=== PATIENT | female | born 1995 | race Caucasian/White ===

== ENCOUNTER 2020-02-17 20:39 | Outpatient (REF) | payer MEDICAID, SELFPAY ==
[2020-02-19 14:52] LABS: Chlamydia Result Negative (Negative); GC Result Negative (Negative)
== END 2020-02-17 20:59 ==
LOC: LBN 20:39
DX: R30.0 Dysuria (principal)
CPT/HCPCS: 87491; 87591

== ENCOUNTER 2020-02-24 02:45 | Outpatient (CLI) | payer MEDICAID, SELFPAY ==
[2020-02-24 10:35] LABS: ALT 22 U/L (14-59); AST 11 U/L (15-37); Albumin 3.9 g/dL (3.4-5.0); Alkaline Phosphatase 68 U/L (46-116); Anion Gap 9.4 mmol/L (3-11); BUN 12 mg/dL (7-18); Bilirubin, Total 0.5 mg/dL (0.2-1.0); CO2 24.6 mmol/L (21.0-32.0); CREATININE 0.85 mg/dL (0.55-1.02); Calcium 9.4 mg/dL (8.5-10.1); Chloride 107 mmol/L (98-107); GGT 37 U/L (5-55); Glucose 104 mg/dL (74-106); Potassium 4.4 mmol/L (3.5-5.1); Sodium 141 mmol/L (136-145); Total Protein 6.9 g/dL (6.4-8.2)
[2020-02-24 10:54] LABS: Vitamin D 25 Total 17.1 ng/ml (30-100)
[2020-02-25 09:54] LABS: HIV-1/2 Ag & Ab Screen Negative (Negative)
[2020-02-25 09:59] LABS: Hepatitis C Ab w Rflx HCV PCR Negative (Negative)
== END 2020-02-24 03:05 ==
DX: Z20.2 Contact with and (suspected) exposure to infections with a predominantly sexual mode of transmission (principal); F32.9 Major depressive disorder, single episode, unspecified; F41.9 Anxiety disorder, unspecified; F90.9 Attention-deficit hyperactivity disorder, unspecified type
CPT/HCPCS: 36415; 80053; 82306; 86803; 87389; 82977

== ENCOUNTER 2020-06-08 22:44 | Outpatient (REF) | payer MEDICAID, SELFPAY ==
[2020-06-08 23:16] LABS: Bilirubin Negative (Negative); Blood Negative (Negative); Clarity Cloudy (Clear); Glucose Negative (Negative); Ketones Negative (Negative); Leukocyte Esterase Small (Negative); Nitrite Negative (Negative); Specific Gravity >= 1.030 (1.005-1.025); Urobilinogen 0.2 EU/dL (Up TO 0.2)
[2020-06-08 23:26] LABS: Epithelial Cells Many HPF (Negative)
[2020-06-08 23:27] LABS: C & S Indicated? C&S Done As Ordered; Crystals Many Amorphous HPF (Negative)
== END 2020-06-08 23:04 ==
LOC: NCHCN 22:44
DX: R35.0 Frequency of micturition (principal)
CPT/HCPCS: 81003; 81015; 87086

== ENCOUNTER 2020-08-06 04:54 | Outpatient (CLI) | payer MEDICAID, SELFPAY ==
[2020-08-06 15:25] LABS: Kit/Specimen SENT
[2020-08-06 15:36] LABS: Glucose,1 Hr (Glucola) 128 mg/dL (80-140)
[2020-08-06 15:56] LABS: Abs Immature Grans 0.04 10^3/uL (0.0-0.06); Absolute Basophil Count 0.03 10^3/uL (0.0-0.2); Absolute Eosinophil Count 0.15 10^3/uL (0.0-0.7); Absolute Lymphocyte Count 2.11 10^3/uL (1.2-3.4); Absolute Monocyte Count 0.49 10^3/uL (0.1-0.8); Absolute Neutrophil Count 5.58 10^3/uL (1.2-6.7); Basophils % 0.4; Eosinophils % 1.8; HCT 38.8 % (36.0-46.0); HGB 13.1 g/dL (11.2-15.7); Immature Grans % 0.5; Lymphocytes % 25.1; MCH 30.8 pg (27.0-33.0); MCHC 33.8 % (32.0-36.0); MCV 91.1 fL (80-95); MPV 11.1 fL (8.0-11.0); Monocytes % 5.8; Neutrophils % 66.4; Nucleated RBC 0 %; Platelet Count 245 10^3/uL (130-400); RBC 4.26 10^6/uL (3.93-5.22); RDW 12.4 % (11.7-14.6); RDW-SD 40.9 fL
[2020-08-06 16:42] LABS: TSH (W/Ref FT4) 0.56 uIU/mL (0.36-3.74)
[2020-08-07 09:08] LABS: Hepatitis B Surface Ag Negative (Negative)
[2020-08-07 09:59] LABS: HIV-1/2 Ag & Ab Screen Negative (Negative)
[2020-08-07 10:01] LABS: Hepatitis C Ab w Rflx HCV PCR Negative (Negative)
[2020-08-07 10:57] LABS: Varicella IgG Antibody Positive (See Note)
[2020-08-07 11:02] LABS: Rubella IgG Ab (UVM) Positive (See Note)
[2020-08-08 10:22] LABS: Syphilis Total Ab w/Reflex Nonreactive (Nonreactive)
== END 2020-08-06 05:14 ==
PROVIDERS: Visit Provider Advanced Practice Midwife
DX: Z34.91 Encounter for supervision of normal pregnancy, unspecified, first trimester (principal); Z11.4 Encounter for screening for human immunodeficiency virus [HIV]; Z11.59 Encounter for screening for other viral diseases; Z01.84 Encounter for antibody response examination
CPT/HCPCS: 36415; 82950; 86787; 86803; 86850; 86900; 86901; 87340; 87389; 84443; 85025; 86762; 86780

== ENCOUNTER 2020-08-06 17:06 | Outpatient (REF) | payer MEDICAID, SELFPAY ==
--- NOTE | 2020-08-06 14:45 | PAPFT_PTH ---
PATIENT: Liseth Washburn LOC: [facility] U#:[id number] AGE/SX: 25/F ROOM: RE08/06/[address]: Tucker Mcfarland RN : 1995 BED: DIS: 08/06/2020 SPEC #: [id number] RECD: 08/06/20 18:20 STATUS: FADI REUnique #: [id number] YANNI: 08/06/20 14:[address]: Tucker Mcfarland DEPT: [facility] Cytology RECD BY: July Chacko ENTERED: 08/06/20 18:20 SP TYPE: PAPFT OT DR: Marilu Chau APRN Tissues: 1 - CX/ENDOCX FOR PAP SMEARS Procedures: PAP THIN PREP/UVM Screening Comments: [id number]
[2020-08-06 16:04] LABS: *AMPHETAMINES SCREEN URINE Negative (Negative); *BARBITURATES SCREEN URINE Negative (Negative); *BENZODIAZEPINES SCREEN URINE Negative (Negative); Cannabinoids THC POSITIVE (Negative); Cocaine Screen,Urine Negative (Negative); METHADONE URINE SCREEN Negative (Negative); OPIATES URINE SCREEN Negative (Negative)
[2020-08-06 16:18] LABS: Tricyclic Antidepressants Negative (Negative)
[2020-08-07 15:31] LABS: Chlamydia Result Negative (Negative); GC Result Negative (Negative)
[2020-08-11 13:36] LABS: Buprenorphine Negative; Norbuprenorphine Negative
== END 2020-08-06 17:26 ==
LOC: LBN 17:06
PROVIDERS: Visit Provider Advanced Practice Midwife
DX: Z12.4 Encounter for screening for malignant neoplasm of cervix (principal); Z34.91 Encounter for supervision of normal pregnancy, unspecified, first trimester; N89.8 Other specified noninflammatory disorders of vagina; Z11.3 Encounter for screening for infections with a predominantly sexual mode of transmission
CPT/HCPCS: 80307; 87491; 87591; 88142; 87086; 87480; 87510; 87660

== ENCOUNTER 2020-09-07 02:11 | Outpatient (CLI) | payer MEDICAID, SELFPAY ==
--- NOTE | 2020-09-07 06:30 | DI.US_ITS ---
EXAM: US OB 2-3 TRIMESTER W MOD CLINICAL HISTORY: routine pnc,z34.90. TECHNIQUE: Transabdominal obstetrical ultrasound was performed. COMPARISON: None FINDINGS: There is a single viable intrauterine gestation with cardiac activity identified-147 bpm. Amniotic fluid: There is a normal amount of amniotic fluid. Placental location: The placenta is posterior grade 1,this is from tip of placenta to the internal ce rvical os is 4 cm on today's study ANATOMY: A 3 vessel umbilical cord is seen. A four-chamber cardiac view was obtained. Four-chamber cardiac view and outflow tract views were difficult to assess on the present study There are no obvious abnormalities of the spinal column evident. There is no obvious abnormal ity of the anterior abdominal wall. stomach and urinary bladder are identified and there is no evidence of hydronephrosis. There was slight prominence of the renal pelves and b ut no true hydronephrosis No evidence of cord plexus cyst in the brain. Resolution for visualization of the facial features including the nose and lips was less than optimal . Requires repeating Dating parameters place this at approximately 19 weeks and 3 days gestational age. BPD measures 19 weeks and 4 days HC measures 19 weeks and 0 days AC measures 19 weeks and 2 days FL measures 19 weeks and 4 days Estimated weight is 290 gm-0 pounds 10 ounces Fetus is at the 99th percentile on the Hadlock scale. IMPRESSION:: Single viable intrauterine gestation which is approximately 19 weeks and 3 days gestati onal age, implying an HAM of January 29, 2021. There are no obvious anomalies evident on today's study. However, please note that resolution w as not adequate for visualization of four-chamber cardiac view nor of the cardiac outflow tracts. Al so requiring repeat imaging for better visualization of the facial features including the upper lip and palate region and nose. Also repeat imaging of the kidneys for PDKD ratios. THE pat ient was given a follow-up appointment on september 14, 2020. The placenta is posterior with no evidence of placenta previa. There is a normal amount of amniotic fluid. DATA REPOSITORY:
== END 2020-09-07 02:12 ==
LOC: DI 02:11
PROVIDERS: Visit Provider Advanced Practice Midwife
DX: Z34.92 Encounter for supervision of normal pregnancy, unspecified, second trimester (principal); Z3A.19 19 weeks gestation of pregnancy
CPT/HCPCS: 76805

== ENCOUNTER 2020-09-14 02:41 | Outpatient (CLI) | payer MEDICAID, SELFPAY ==
--- NOTE | 2020-09-14 | DI.US_ITS ---
EXAM: US OB F/U FACIAL/LVOT/RVOT CLINICAL HISTORY: F/U NOSE,LIPS,3D,4DCH LVOT,RVOT. TECHNIQUE: Transabdominal obstetrical ultrasound performed. COMPARISON: US US OB 2-3 TRIMESTER W MOD from 09/07/2020 FINDINGS: Transabdominal obstetrical ultrasound performed. FINDINGS: Number of fetuses: One. position: Cephalic heart rate: 150 bpm. Placental location: Posterior. No evidence of previa. ANATOMICAL SURVEY: kidneys are unremarkable. nose and lips are unremarkable. Four -chamber heart is unremarkable. The right and left ventricular outflow tracts could not be well visu alized on the current examination due to positioning. The patient is scheduled to return on 09/17/2020 for further imaging. IMPRESSION: 1. Single live intrauterine gestation as above. 2. kidneys, nose and lips, and 4 chamber heart were visualized and are unremarkable. 3. The right and left ventricular outflow tracts were not visualized due to positioning and the patient is scheduled to return on 09/17/2020 for further imaging. DATA REPOSITORY:
== END 2020-09-14 03:01 ==
PROVIDERS: Visit Provider Advanced Practice Midwife
DX: Z34.92 Encounter for supervision of normal pregnancy, unspecified, second trimester (principal)
CPT/HCPCS: 76815

== ENCOUNTER 2020-09-17 03:01 | Outpatient (CLI) | payer MEDICAID, SELFPAY ==
--- NOTE | 2020-09-17 | DI.US_ITS ---
EXAM: US OB F/U FACIAL/LVOT/RVOT CLINICAL HISTORY: F/U RVOT AND LVOT. TECHNIQUE: Transabdominal obstetrical ultrasound performed. COMPARISON: US US OB F/U FACIAL/LVOT/RVOT from 09/14/2020 FINDINGS: Transabdominal obstetrical ultrasound performed. FINDINGS: Number of fetuses: One. position: Breech Placental location: Posterior. No evidence of previa. Heart Rate: 160BPM The four-chamber heart and both right and left ventricular outflow tracts were seen today and are unr emarkable. IMPRESSION: 1. Single live intrauterine gestation as above. 2. This is a limited obstetrical ultrasound to complete the survey. The four-chamber heart and both right and left ventricular outflow tracts were visualized today and are unremarkable. DATA REPOSITORY:
== END 2020-09-17 03:21 ==
PROVIDERS: Visit Provider Advanced Practice Midwife
DX: Z34.92 Encounter for supervision of normal pregnancy, unspecified, second trimester (principal)
CPT/HCPCS: 76815

== ENCOUNTER 2020-11-16 02:33 | Outpatient (CLI) | payer MEDICAID, SELFPAY ==
[2020-11-16 10:45] LABS: HCT 36.8 % (36.0-46.0); HGB 12.3 g/dL (11.2-15.7); MCH 30.9 pg (27.0-33.0); MCHC 33.4 % (32.0-36.0); MCV 92.5 fL (80-95); MPV 10.8 fL (8.0-11.0); Platelet Count 220 10^3/uL (130-400); RBC 3.98 10^6/uL (3.93-5.22); RDW 13.2 % (11.7-14.6); RDW-SD 44.4 fL; WBC 9.63 10^3/uL (4.4-10.8)
[2020-11-16 12:47] LABS: Glucose,1 Hr (Glucola) 159 mg/dL (80-140)
[2020-11-16 14:58] LABS: *AMPHETAMINES SCREEN URINE Negative (Negative); *BARBITURATES SCREEN URINE Negative (Negative); *BENZODIAZEPINES SCREEN URINE Negative (Negative); Cannabinoids THC Positive (Negative); Cocaine Screen,Urine Negative (Negative); METHADONE URINE SCREEN Negative (Negative); OPIATES URINE SCREEN Negative (Negative)
[2020-11-16 15:00] LABS: Tricyclic Antidepressants Negative (Negative)
[2020-11-19 11:08] LABS: Buprenorphine Negative ng/mL (Cutoff: 5.0); Norbuprenorphine Negative ng/mL (Cutoff: 2.5)
== END 2020-11-16 02:34 | disposition home or self-care (01) ==
LOC: LBO 02:34
PROVIDERS: Visit Provider Advanced Practice Midwife
DX: O36.013 Maternal care for anti-D [Rh] antibodies, third trimester (principal); Z67.91 Unspecified blood type, Rh negative; O26.893 Other specified pregnancy related conditions, third trimester; F12.90 Cannabis use, unspecified, uncomplicated; Z3A.28 28 weeks gestation of pregnancy
CPT/HCPCS: 36415; 80307; 82950; 85027; 86850; 86900; 86901; 90384

== ENCOUNTER 2020-12-04 03:14 | Outpatient (CLI) | payer MEDICAID, SELFPAY ==
[2020-12-04 11:06] LABS: Glucose 1 Hour 183 mg/dL
[2020-12-04 13:15] LABS: Glucose 3 Hour 110 mg/dL
== END 2020-12-04 03:15 | disposition home or self-care (01) ==
PROVIDERS: Visit Provider Advanced Practice Midwife
DX: O99.810 Abnormal glucose complicating pregnancy (principal); Z3A.30 30 weeks gestation of pregnancy
CPT/HCPCS: 36415; 82951

== ENCOUNTER 2021-01-11 02:10 | Outpatient (CLI) | payer MEDICAID, SELFPAY ==
--- NOTE | 2021-01-11 07:45 | DI.US_ITS ---
Exam(s) US OB JIN WEIGHT EXAM: US OB JIN WEIGHT CLINICAL HISTORY: gestational diabetes, previous LGA baby, Z34.90, O24.419. TECHNIQUE: Transabdominal obstetrical ultrasound was performed. COMPARISON: US US OB F/U FACIAL/LVOT/RVOT from 09/17/2020 FINDINGS: There is a single viable intrauterine gestation with cardiac activity identified-152 bpm The fetus is presently in cephalic position with spine located anteriorly.. Amniotic fluid: There is a normal amount of amniotic fluid with an JIN of 18.7cm. Placental location: The placenta is posterior fundal grade 1,with no evidence of placenta previa.The distance from the tip of the placenta to the internal cervical os is 7 cm on today's study Dating parameters place this at approximately 37 weeks and 3 days gestational age, implying HAM of January 29, 2021. BPD measures 37 weeks and 6 days HC measures 38 weeks and 2 days AC measures 36 weeks and 4 days FL measures 37 weeks and 0 days Estimated weight is 3098 gm-6 pounds 13 ounces Fetus is at the 79th percentile on the Hadlock scale. IMPRESSION:: Viable 3rd trimester gestation, as described above. DATA REPOSITORY:
== END 2021-01-11 02:30 ==
PROVIDERS: Visit Provider Advanced Practice Midwife
DX: O24.410 Gestational diabetes mellitus in pregnancy, diet controlled (principal); Z3A.37 37 weeks gestation of pregnancy
CPT/HCPCS: 76816

== ENCOUNTER 2021-01-13 14:53 | Outpatient (REF) | payer MEDICAID, SELFPAY ==
[2021-01-13 14:15] LABS: *AMPHETAMINES SCREEN URINE Negative (Negative); *BARBITURATES SCREEN URINE Negative (Negative); *BENZODIAZEPINES SCREEN URINE Negative (Negative); Cannabinoids THC Positive (Negative); Cocaine Screen,Urine Negative (Negative); METHADONE URINE SCREEN Negative (Negative); OPIATES URINE SCREEN Negative (Negative)
[2021-01-13 14:19] LABS: Tricyclic Antidepressants Negative (Negative)
[2021-01-16 10:52] LABS: Buprenorphine Negative ng/mL (Cutoff: 5.0); Norbuprenorphine Negative ng/mL (Cutoff: 2.5)
== END 2021-01-13 14:54 | disposition home or self-care (01) ==
LOC: LBN 14:53
PROVIDERS: Visit Provider Advanced Practice Midwife
DX: Z34.91 Encounter for supervision of normal pregnancy, unspecified, first trimester (principal); Z36.85 Encounter for antenatal screening for Streptococcus B; Z3A.36 36 weeks gestation of pregnancy
CPT/HCPCS: 80307; 87081

== ENCOUNTER 2021-01-21 08:00 | Inpatient (IN) | payer MEDICAID, SELFPAY ==
[2021-01-21] VITALS (10 sets, daily range): BP systolic 104–126; BP diastolic 57–69; PULSE 72–86; RESP 16–18; TEMP 36.4–36.8; O2SAT 98–99
[2021-01-21 08:47] LABS: ROM Plus Positive
--- NOTE | 2021-01-21 09:32 | HPE_ITS ---
Date of service: 01/21/21 Time of Service: 09:32 Assessment and Plan Assessment and plan (1) Gestational diabetes mellitus (GDM) affecting : Status: Acute Assessment and plan: random glucose on admission. (2) Rupture of membranes with clear amniotic fluid: Status: Acute Assessment and plan: will assess labor pattern x 3-4 hours. Consider rupture of a palpable forebag. Reviewed risks of prolonger ROM with Liseth. Consider labor augmentation if no spontaneous labor OB-HPI Labor/Delivery History of Present Illness Reason for Visit: Rule Out Labor Chief Complaint: Suspected Rupture of Membranes (no contractions) , Associated Signs and Symptoms of Suspected ROM: no. HAM Calculator Estimated Delivery Date Method Current WG Current Estimate 02/08/21 LMP (Certain) 37w 3d Other Estimates 02/07/21 Ultrasound #1 37w 4d 02/06/21 Ultrasound #2 37w 5d Comments: Liseth called at 0700 and reported two episodes of leaking of fluid at 0100 and 0400. Clear fluid which pooled. She denies feeling contractions. History of Present Expected Delivery Route/Plan - CNM FOB: Ethan Lou 18 yo - (lives in [facility] in [place], they are , he of overdose 10/2020) BB yes to circ GBS positive Steve Alexandrebeth Support people in labor Ana, her Mom and Mariah, her sister) Specific Issues/Plan 1. Rh negative; RhoGam at 28 wks- received. 2. THC+ on UDS at initial OB; pt to be counseled to cease use, plan repeat UDS at 28 wks and POSC if still using 2a. 28 week UDS + THC review again and refer for POSC. 2b. Liseth had POSC completed with Regina Reyes 12/23 2c. 36 week UDS + THC 3. At initial OB is BV+, will Rx Flagyl 500 mg PO BID x7 days- treated. 4. [place] result low prob x3, male 5. Bipolar disorder-cutting in the past, Wellbutrin prescribed in the past. 5a. [facility] saw pt 09/25, psych consult w/Dr. Gomez done 10/13, see notes: sertraline and lamictal 5b. Counselor recommended, Regina Reyes will give her a list of names. 5c. Rx'ed sertraline 25 mg x4 days then 50 mg daily for 4 wks, to start 10/15/20. Assess efficacy in 4 wks ____ 5d. Has not started Sertraline yet nmbv 6. History of opiate dependence - recovered. She was seeing a drug and alcohol therapist prior to Covid - she would like to see a therapist for mental health 7. Anatomy incomplete, L/R outflow tracts, repeat US 09/17/20- heart anatomy WNL. 8. BMI 31, History of gestational diabetes and LGA baby - Early GTT WNL 9. Ethan, the baby's father suddenly. Klonopin prescribed for sleep during the first week. Liseth is in counseling and has reached out to her counselor. 10. Delivery summary reviewed- heavy bleeding after first with EBL 750cc. Consider I.V. access in labor. 11. 1 hour glucose 159, 3 hour elevated X 2 (F 98/ 1hr 183/ 2hr 119/ 3hr 110) 11a. testing supplies ordered and patient will bring log next visit 11b. Elevated fasting glucose- she reports that she has milk nightly in the transporter radiology daily for heartburn. Plan made to continue monitoring. 11c. Blood sugars WNL after stopping milk, heartburn is improved. Continue testing QID 11d. US shows JIN 18.7 EFW 6-13, 79%ile 12. Declines covid vaccine. Considering getting it while . 13. Carpal tunnel symptoms - wrist braces ordered. 13a. using braces but it is not helping, works as hairdresser. Magnesium recommended daily, consider flexeril if no relief [facility] Medical History (Updated 01/21/21 @ 09:38 by Jeny Son CNM) Carpal tunnel syndrome Depression Increased body mass index (BMI) Possible exposure to STD Smoker Vitamin D deficiency Surgical History Cholecystectomy (~05/2010) Tonsillectomy (~01/2007) Family History Family History Diabetes Social History Smoking/Tobacco Use Status: Current-Occasional Tobacco Type: cigarettes Smoking risk assessment performed?: Yes Drug use: Daily Substance use type: former substance user Date of last use: stopped 1 week ago. Do you feel safe in your relationship?: Yes History History 2 Para 1 Hx # Term Pregnancies 1 Multiple births 0 Hx # Pregnancies 0 Ectopic pregnancies 0 AB induced 0 Hx Number of Living Children 1 AB spontaneous 0 Past Pregnancies Del. Date GA/Weeks # Outcome Route Wgt Sex Labor Lgth Anesthes ia Location Prov Complic 07/03/14 38 No Successful vaginal 10 lb 2 oz Male 4 hrs [facility] Delivery Date: 07/03/14 2.5 hour second stage, Delivered in bed on all fours. Group B strep. Jeny Rhodes Allergies and Home Medications Allergies Allergy/AdvReac Type Severity Reaction Status Date / Time No Known Allergies Allergy Verified 01/13/21 10:36 Home Medications Medication Instructions Recorded Confirmed Type prenat.vits,brenda,byi-nmuj-ltwbw 1 tab PO DAILY 07/22/20 01/21/21 History sertraline 25 mg tablet 50 mg PO DAILY #60 tab 10/15/20 01/21/21 Rx alcohol swabs 1 pad TOPICAL QID #100 ea 12/16/20 01/21/21 Rx blood sugar diagnostic #100 ea 12/16/20 01/21/21 Rx blood-glucose meter #1 ea 12/16/20 01/21/21 Rx lancets 28 gauge #100 ea 12/16/20 01/21/21 Rx Exam Physical Exam Vital signs: Temp Pulse Resp BP 98.2 F 80 16 122/64 01/21/21 08:25 01/21/21 08:28 01/21/21 08:25 01/21/21 08:28 Vital Signs Reviewed: Yes Detailed Labor and Delivery Exam Dilation: 1 Effacement (%): 50 station: -2 Cervix position: posterior Consistency: soft Ramos Score: Cervical Points Exam 0 1 2 3 Dilation Closed 1-2cm 3-4 cm 5-6cm Effacement 0-30% 40-50% 60-70% 80% Consistency Firm Medium Soft Station -3 -2 -1,0 +1,+2 Position Posterior Mid Anterior Amniotic Membrane Status: Ruptured Rupture Method: Spontaneous Amniotic Fluid: Clear Pooling: Negative ROM Plus: Positive Monitor Mode: External Contraction Intensity: Mild Comments: Denies contractions. Fetus A Heart Rate Baseline: 140 Monitor Accelerations: 15 X 15 Monitor Decelerations: None Variability: Moderate (6-25 BPM) Presentation: Vertex Categories: Category I Date of Membrane Rupture: 01/21/21 Time of Membrane Rupture: 01:00 Breast Exam Breast Exam: Normal Respiratory Exam Respiratory Exam: Normal Cardiovascular Exam Cardiovascular Exam: Normal Abdominal Exam Abdominal Exam: Normal Rectal Exam Rectal Exam: Normal Exam Exam: Normal Detailed Exam Patient deferred: external exam Perineum Description: Normal Extremities Exam Extremities Exam: Normal Skin Exam Skin Exam: Normal Risk Assessment Risk for Shoulder Dystocia Historical/Initial OB: POSITIVE FOR: Pre- BMI>30 and Previous Macrosomia; NEGATIVE FOR: Pelvic Abnormality or Previous Shoulder Dystocia 40 Weeks: NEGATIVE FOR: EFW> 4500 gms, Maternal Weight Gain >40lb or Post Dates Counselin08/06/20 reviewed risk, prev h/o gdm and lga 10.2 lbs. al To do early gct.al Risk for Pre-Eclampsia Daily Dose ASA Indicated: No Date Initiated/Initials: 08/06/20 al Yes, if one or more: NEGATIVE FOR: Hx Pre-E/Gest HTN, Chronic HTN, Multiple Gestation, Pre-gestational DM, Renal Disease, Systemic Lupus or APA Syndrome Yes, if 2 or more: POSITIVE FOR: BMI>30; NEGATIVE FOR: Nulliparity, Age>= 35 yrs, >10yr btwn pregnancies, ethinicty, Mother/Sister w/ Pre-E or Previous IUGR Risk for Post- Hemorrhage Initial: NEGATIVE FOR: Multiple Gestation, Previous PPH, Known Clotting Deficiency, Grand Multiparity or Anticoagulation At Risk?: No Risks Reviewed Risks Reviewed Upon Admission: Yes
[2021-01-21 10:31] LABS: Source Nasal/Nares
[2021-01-21 10:41] LABS: HCT 40.9 % (36.0-46.0); HGB 13.3 g/dL (11.2-15.7); MCH 29.2 pg (27.0-33.0); MCHC 32.5 % (32.0-36.0); MCV 89.7 fL (80-95); MPV 12.2 fL (8.0-11.0); Platelet Count 213 10^3/uL (130-400); RBC 4.56 10^6/uL (3.93-5.22); RDW 14.3 % (11.7-14.6); RDW-SD 46.6 fL; WBC 9.02 10^3/uL (4.4-10.8)
--- NOTE | 2021-01-21 11:02 | W.PM.OBNL1 ---
Date of service: 01/21/21 Time of Service: 11:02 Contractions Monitor Mode: Palpation Contraction Frequency(min): every 4 minutes Intensity: Moderate Fetus A Monitor: Doppler Heart Rate Baseline: 140 Presentation: Vertex Amniotic Membrane Status: Ruptured Rupture Method: Spontaneous Amniotic Fluid: Clear Assessment and Plan Assessment and plan (1) Rupture of membranes with clear amniotic fluid: Status: Acute Assessment and plan: Comfort measures. Discussed risks of prolonged rupture of membranes and option of labor augmentation with Liseth. She prefers no labor augmentation at this time unless necessary (2) Group B streptococcal infection during : Status: Acute Assessment and plan: antibiotic prophylaxis per protocal for GBS colonization Objective Abnormal lab results 01/21/21 Range/Units 10:07 MPV 12.2 H (8.0-11.0) fL Temp Pulse Resp BP 98.2 F 80 16 122/64 01/21/21 08:25 01/21/21 08:28 01/21/21 08:25 01/21/21 08:28 Laboratory Results WBC 9.02 10^3/uL (4.4-10.8) 01/21/21 10:07 RBC 4.56 10^6/uL (3.93-5.22) 01/21/21 10:07 Hgb 13.3 g/dL (11.2-15.7) 01/21/21 10:07 Hct 40.9 % (36.0-46.0) 01/21/21 10:07 MCV 89.7 fL (80-95) 01/21/21 10:07 MCH 29.2 pg (27.0-33.0) 01/21/21 10:07 MCHC 32.5 % (32.0-36.0) 01/21/21 10:07 RDW 14.3 % (11.7-14.6) 01/21/21 10:07 Plt Count 213 10^3/uL (130-400) 01/21/21 10:07 MPV 12.2 fL (8.0-11.0) H 01/21/21 10:07 Membranes Rupture Positive 01/21/21 08:23 COVID-19 Source Nasal/Nares 01/21/21 10:03 Patient ABO/Rh O Negative 01/21/21 10:07 Subjective Patient Reports: New Complaints Interval history since last seen: Contractions after taking a shower are now stronger and more regular. Results Hemoglobin/Hematocrit: Hgb 13.3 g/dL (11.2-15.7) 01/21/21 10:07 Hct 40.9 % (36.0-46.0) 01/21/21 10:07 Abnormal Lab Findings: Abnormal Labs 01/21/21 10:07 MPV 12.2 H
[2021-01-21] MEDS: Normal Saline Flush 10 ML SYR IVP ×3 (11:14→23:04)
[2021-01-21] MEDS: Normal Saline 500 ML 125 ML IV (11:22)
[2021-01-21] MEDS: Penicillin G POT. 5,000,000 UNITS in Normal Saline 100 ML 200 UNITS IVPB (11:23)
[2021-01-21 11:29] LABS: COVID-19 PCR Negative (Negative)
--- NOTE | 2021-01-21 14:53 | W.PM.OBNL1 ---
Date of service: 01/21/21 Time of Service: 14:53 Informed Consent Informed Consent: Other (artificial rupture of forebag) Pelvic Exam Dilation: 2 Effacement (%): 50 station: -1 Cervix Position: posterior Consistency: soft Vaginal Exam Presentation: Cephalic Pooling: Positive Contractions Monitor Mode: Palpation Contraction Frequency(min): every 4 min Contraction Duration(sec): 50 Intensity: Moderate Fetus A Monitor: Doppler Heart Rate Baseline: 140 Presentation: Vertex Variability: Moderate (6-25 BPM) Categories: Category I FHR Rhythm: Regular Accelerations: 15 X 15 Decelerations: None Amniotic Membrane Status: Ruptured Amniotic Fluid: Clear Assessment and Plan Assessment and plan (1) Group B streptococcal infection during : Status: Acute Assessment and plan: antibiotic prophylaxis. (2) Rupture of membranes with clear amniotic fluid: Status: Acute (3) Spontaneous onset of labor: Status: Acute Assessment and plan: assess labor progress. Comfort measures. Her sister and mother are providing support. Objective Abnormal lab results 01/21/21 Range/Units 10:07 MPV 12.2 H (8.0-11.0) fL Temp Pulse Resp BP 98.1 F 80 16 126/61 01/21/21 14:29 01/21/21 14:29 01/21/21 14:29 01/21/21 14:29 Laboratory Results WBC 9.02 10^3/uL (4.4-10.8) 01/21/21 10:07 RBC 4.56 10^6/uL (3.93-5.22) 01/21/21 10:07 Hgb 13.3 g/dL (11.2-15.7) 01/21/21 10:07 Hct 40.9 % (36.0-46.0) 01/21/21 10:07 MCV 89.7 fL (80-95) 01/21/21 10:07 MCH 29.2 pg (27.0-33.0) 01/21/21 10:07 MCHC 32.5 % (32.0-36.0) 01/21/21 10:07 RDW 14.3 % (11.7-14.6) 01/21/21 10:07 Plt Count 213 10^3/uL (130-400) 01/21/21 10:07 MPV 12.2 fL (8.0-11.0) H 01/21/21 10:07 Membranes Rupture Positive 01/21/21 08:23 COVID-19 Source Nasal/Nares 01/21/21 10:03 SARS-CoV-2 (PCR) Negative (Negative) 01/21/21 10:03 Patient ABO/Rh O Negative 01/21/21 10:07 Antibody Screen NEGATIVE 01/21/21 10:07 Subjective Patient Reports: New Complaints Interval history since last seen: Liseth reports that contractions are becoming stronger. Results Hemoglobin/Hematocrit: Hgb 13.3 g/dL (11.2-15.7) 01/21/21 10:07 Hct 40.9 % (36.0-46.0) 01/21/21 10:07 Abnormal Lab Findings: Abnormal Labs 01/21/21 10:07 MPV 12.2 H
[2021-01-21] MEDS: Penicillin G POT. 3,000,000 UNITS in Normal Saline 50 ML 100 UNITS IVPB ×3 (15:11→23:04)
--- NOTE | 2021-01-21 19:32 | W.PM.OBNL1 ---
Date of service: 01/21/21 Time of Service: 19:32 Informed Consent Informed Consent: Other (artificial rupture of forebag) Pelvic Exam Dilation: 4 Effacement (%): 80 station: -1 Cervix Position: mid Consistency: soft Vaginal Exam Presentation: Vertex Pooling: Positive Contractions Monitor Mode: Palpation Contraction Frequency(min): 50 Intensity: Moderate Fetus A Monitor: Doppler Heart Rate Baseline: 145 Presentation: Vertex Variability: Moderate (6-25 BPM) Categories: Category I FHR Rhythm: Regular Characteristics: Normal Accelerations: 15 X 15 Decelerations: None Assessment and Plan Assessment and plan (1) Spontaneous onset of labor: Status: Acute Assessment and plan: Liseth plans to use the tub when it becomes available. Dr. Luciano and Mckenzie notified of patient's status. Anticipate , Objective Abnormal lab results 01/21/21 Range/Units 10:07 MPV 12.2 H (8.0-11.0) fL Temp Pulse Resp BP 97.5 F L 72 16 123/61 01/21/21 17:21 01/21/21 18:52 01/21/21 15:59 01/21/21 18:52 Laboratory Results WBC 9.02 10^3/uL (4.4-10.8) 01/21/21 10:07 RBC 4.56 10^6/uL (3.93-5.22) 01/21/21 10:07 Hgb 13.3 g/dL (11.2-15.7) 01/21/21 10:07 Hct 40.9 % (36.0-46.0) 01/21/21 10:07 MCV 89.7 fL (80-95) 01/21/21 10:07 MCH 29.2 pg (27.0-33.0) 01/21/21 10:07 MCHC 32.5 % (32.0-36.0) 01/21/21 10:07 RDW 14.3 % (11.7-14.6) 01/21/21 10:07 Plt Count 213 10^3/uL (130-400) 01/21/21 10:07 MPV 12.2 fL (8.0-11.0) H 01/21/21 10:07 Membranes Rupture Positive 01/21/21 08:23 COVID-19 Source Nasal/Nares 01/21/21 10:03 SARS-CoV-2 (PCR) Negative (Negative) 01/21/21 10:03 Patient ABO/Rh O Negative 01/21/21 10:07 Antibody Screen NEGATIVE 01/21/21 10:07 Subjective Patient Reports: New Complaints Interval history since last seen: Liseth reports stronger contractions that she now has to breathe through. She was 3-4 cms at 1730 and contractions became stronger after exam. Pitocin augmentation was discussed at that times and Liseth declined at that time and wishes to await spontaneous active labor. Results Hemoglobin/Hematocrit: Hgb 13.3 g/dL (11.2-15.7) 01/21/21 10:07 Hct 40.9 % (36.0-46.0) 01/21/21 10:07 Abnormal Lab Findings: Abnormal Labs 01/21/21 10:07 MPV 12.2 H
--- NOTE | 2021-01-21 22:58 | W.PM.OBNL1 ---
Date of service: 01/21/21 Time of Service: 22:58 Informed Consent Informed Consent: Other (artificial rupture of forebag) Pelvic Exam Dilation: 4 Effacement (%): 80 station: -1 Consistency: soft Vaginal Exam Presentation: Cephalic Pooling: Positive Contractions Monitor Mode: External Contraction Frequency(min): irregular Intensity: Moderate Fetus A Monitor: External (US) Heart Rate Baseline: 140 Presentation: Vertex Variability: Moderate (6-25 BPM) Categories: Category I FHR Rhythm: Regular Characteristics: Normal Accelerations: 15 X 15 Decelerations: None Assessment and Plan Assessment and plan (1) Prolonged rupture of membranes: Status: Acute Assessment and plan: Pitocin augmentation ordered after discussion with Liseth about limited progress. Liseth agrees. position changes and comfort measures. Anticipate . Objective Abnormal lab results 01/21/21 Range/Units 10:07 MPV 12.2 H (8.0-11.0) fL Temp Pulse Resp BP Pulse Ox 97.9 F 86 18 118/57 L 98 01/21/21 21:37 01/21/21 21:37 01/21/21 21:37 01/21/21 21:37 01/21/21 21:37 Laboratory Results WBC 9.02 10^3/uL (4.4-10.8) 01/21/21 10:07 RBC 4.56 10^6/uL (3.93-5.22) 01/21/21 10:07 Hgb 13.3 g/dL (11.2-15.7) 01/21/21 10:07 Hct 40.9 % (36.0-46.0) 01/21/21 10:07 MCV 89.7 fL (80-95) 01/21/21 10:07 MCH 29.2 pg (27.0-33.0) 01/21/21 10:07 MCHC 32.5 % (32.0-36.0) 01/21/21 10:07 RDW 14.3 % (11.7-14.6) 01/21/21 10:07 Plt Count 213 10^3/uL (130-400) 01/21/21 10:07 MPV 12.2 fL (8.0-11.0) H 01/21/21 10:07 Membranes Rupture Positive 01/21/21 08:23 COVID-19 Source Nasal/Nares 01/21/21 10:03 SARS-CoV-2 (PCR) Negative (Negative) 01/21/21 10:03 Patient ABO/Rh O Negative 01/21/21 10:07 Antibody Screen NEGATIVE 01/21/21 10:07 Subjective Patient Reports: New Complaints Interval history since last seen: Liseth continues to have painful contractions which are irregular and of varying intensity. She reports fatigue and would like to discuss options. Afebrile. Results Hemoglobin/Hematocrit: Hgb 13.3 g/dL (11.2-15.7) 01/21/21 10:07 Hct 40.9 % (36.0-46.0) 01/21/21 10:07 Abnormal Lab Findings: Abnormal Labs 01/21/21 10:07 MPV 12.2 H
[2021-01-21] MEDS: Oxytocin/Normal Saline 30 UNIT/500 ML BAG 2 UNITS IV (23:16)
[2021-01-22] VITALS (15 sets, daily range): BP systolic 110–140; BP diastolic 51–77; PULSE 68–91; RESP 14–18; TEMP 36.6–37.1; O2SAT 99–100
[2021-01-22] MEDS: NALBUPHINE 5 MG in Normal Saline 50 ML 100 MG IVPB ×2 (01:56→02:55)
[2021-01-22] MEDS: Penicillin G POT. 3,000,000 UNITS in Normal Saline 50 ML 100 UNITS IVPB (03:05)
--- NOTE | 2021-01-22 03:53 | W.OBDELIVERY ---
Date of service: 01/22/21 Time of Service: 03:53 OB Labor/ Delivery Information Baby A Delivery Delivery Method: Spontaneaous Presentation: Vertex Vertex Position: Right Occipital Anterior Cord Description-Baby A: 3 Vessels Amniotic Fluid: Clear Estimated Blood Loss: 300 Delivery Outcome: Liveborn Infant Complications: none Note: FHTs 130s during first stage of labor. FHTs 140s in second stage. Liseth had difficulty coping with contraction pain and requested pain medication. She declined an epidural due to concerns about fentanyl and past opiate dependence. She was given nubain 5 mg x 2 with fair effect at controlling her anxiety and pain. She also used nitrous oxide with fair effect. Position changes for comfort were encouraged and and she progressed to 8 cms and had an urge to push on the toilet. Soon after that, she progressed to full dilation and began pushing in the hands and knees position. There was a rapid, spontaneous delivery of a male delivered in MARIELA position. Baby was placed on mother's abdomen and dried and stimulated. Spontaneous cry. Cord was clamped and cut by the baby's grandmother. The placenta delivered spontaneously and appears to by intact with a three vessel cord. Pitocin 30 units IV was administered after delivery of the placenta. The perineum was inspected and was completely intact. The baby did breastfeed. After delivery, Mother and baby Steve were stable and bonding well in the delivery room and there were no complications. Providers Nurse Blanket Cutting Machine Operator: Jeny Son Nurse: Patt Morales Nurse: Olga Lisa Labor/Delivery Information Number of Babies in Womb: 1 Steroids Given: None Reason Steroids Not Administered: N/A Group Beta Strep: Positive Antibiotics Administered: Yes Rubella Status: Immune Blood Type: O- Varicella Immunity: Immune Maternal Complications: None Shoulder Dystocia: No Stages of Labor Onset of Labor Date: 01/21/21 Onset of Labor Time: 01:00 Complete Dilatation Date: 01/22/21 Complete Dilatation Time: 03:29 Labor - Stage 1 Duration: 24 hours and 0 minutes ROM Baby A: 01/21/21 ROM Baby A: 14:25 Delivery Date-Baby A: 01/22/21 Delivery Time-Baby A: 03:29 Labor Stage 2 Duration: 0 minutes Total Length of Labor-Baby A: 26 hours and 29 minutes Placenta Cultured: No Baby A Infant Gender: Male Gestational Age in Weeks/Days: 37 Weeks and 4 Days
[2021-01-22] MEDS: Ibuprofen 600 MG TAB PO ×3 (04:20→16:00)
[2021-01-22] MEDS: Dibucaine 1% 28 GM TUBE TP (04:20)
[2021-01-22] MEDS: Docusate Sodium 100 MG CAP PO (10:35)
[2021-01-22] MEDS: Acetaminophen 325 MG TAB 650 MG PO (16:04)
[2021-01-23] MEDS: Ibuprofen 600 MG TAB PO ×3 (00:17→15:08)
[2021-01-23] MEDS: Acetaminophen 325 MG TAB 650 MG PO ×3 (00:18→15:07)
[2021-01-23 07:50] VITALS: BP 108/71; PULSE 80; RESP 16; TEMP 36.8
--- NOTE | 2021-01-24 07:50 | W.PM.OBDISCH ---
Date of service: 01/23/21 Time of Service: 16:00 DS: Diagnosis Discharge Diagnosis (1) Prolonged rupture of membranes: Status: Acute Asessment and Plan: Caring for baby independently. Pain is managed well with oral analgesics. Voiding without difficulty. well. History of grief reaction due to the of the baby's father. Liseth was prescribed sertraline which she did not begin taking, A - stable mother and baby , Post day 1 P - Discharge to home . Routine post instructions. Post depression discussed as well as grief response. [facility] Sertraline was recommended if depression symptoms occur. (2) Term of male : Status: Acute (3) Group B streptococcal infection during : Status: Acute Discharge Plan Disposition Patient Disposition: HOME Condition: Good Discharge Details Reason For Visit: Rule Out Labor Admit Date/Time: 01/21/21 09:31 Admit Provider: Jeny Son Attending Provider: Jeny Son Primary Care Provider: Marilu Chau Home Meds and New Rx's Prescriptions: No Action prenat.vits,brenda,[id number] Tablet 1 tab PO DAILY RF: 0 (DME) blood-glucose meter [FreeStyle Lite Meter] Kit See Rx Instructions .ROUTE .MEDSUPPLY Qty: 1 RF: 0 (DME) FreeStyle Lite Strips Strip See Rx Instructions .ROUTE .MEDSUPPLY Qty: 100 RF: 4 (DME) lancets [FreeStyle Lancets] 28 gauge misc See Rx Instructions .ROUTE .MEDSUPPLY Qty: 100 RF: 4 alcohol swabs [Alcohol Prep Pads] Pads, Medicated 1 pad topical QID Qty: 100 RF: 4 sertraline 50 mg tablet 50 mg PO DAILY Qty: 30 RF: 8 Discharge Instructions Stand Alone Forms: BC Instructions, BC Post Vaginal Deliver Activity:: Activity as Tolerated Equipment/Supplies:: No Equipment Needed Diet:: As Tolerated Discharge Orders Discharge Orders: Discharge Order (Routine); Ordered 01/23/21 Ordered By: Jeny Son Discharge Data Discharge Date/Time-TO BE ENTERED AT DEPARTURE: 01/23/21 17:05 OB:DS Summary Summary Vaginal Delivery Method: Spontaneaous Episiotomy Description: None Laceration Description: None Laceration Extension: N/A Contraception Discussed Contraception Discussed: No, [place] Infant Gender-Baby A: Male weight: 7 lb 2.817 oz Status at Discharge Functional status at discharge: independent ambulation Overall status at discharge: patient is back to baseline Mental Status: mental status grossly normal Speech and Movement: speech and movement normal Mood: congruent mood Affect: normal affect Exam Physical Exam Vital signs: Temp Pulse Resp BP Pulse Ox 98.2 F 80 16 108/71 99 01/23/21 07:50 01/23/21 07:50 01/23/21 07:50 01/23/21 07:50 01/22/21 20:22 Vital Signs Reviewed: Yes Constitutional Constitutional: no acute distress Neck Exam Neck Exam: Normal Respiratory Exam Respiratory Exam: Normal Cardiovascular Exam Cardiovascular Exam: Normal Abdominal Exam Comments: nontender Fundal Exam Fundus: Below Umbilicus and Firm Exam Comments: perineum intact [facility] Medical History (Updated 01/24/21 @ 07:51 by Jeny Son CNM) Carpal tunnel syndrome Depression Increased body mass index (BMI) Possible exposure to STD Smoker Vitamin D deficiency Surgical History Cholecystectomy (~05/2010) Tonsillectomy (~01/2007) Family History Family History Diabetes Social History Smoking/Tobacco Use Status: Current-Occasional Tobacco Type: cigarettes Smoking risk assessment performed?: Yes Drug use: Daily Substance use type: former substance user Date of last use: stopped 1 week ago. Do you feel safe at home: Yes Do you feel safe in your relationship?: Yes History History 2 Para 1 Hx # Term Pregnancies 1 Multiple births 0 Hx # Pregnancies 0 Ectopic pregnancies 0 AB induced 0 Hx Number of Living Children 1 AB spontaneous 0 Past Pregnancies Del. Date GA/Weeks # Outcome Route Wgt Sex Labor Lgth Anesthesia Location Prov Complic 07/03/14 38 No Successful vaginal 10 lb 2 oz Male 4 hrs [facility] Delivery Date: 07/03/14 2.5 hour second stage, Delivered in bed on all fours. Group B strep. Jeny Rhodes DS: Data Vitals/I&O Vitals and I&O: Vital Signs Temperature 98.2 F 01/23/21 07:50 Pulse 80 01/23/21 07:50 Pulse Rhythm Regular 01/23/21 07:50 Respiratory Rate 16 01/23/21 07:50 Respiratory Depth Normal 01/22/21 20:20 Blood Pressure 108/71 01/23/21 07:50 Blood Pressure Mean 83 01/23/21 07:50 Pulse Oximetry 99 01/22/21 20:22 Oxygen Delivery Method Nasal Cannula 01/21/21 11:42 Oxygen Flow Rate 0 01/21/21 11:42 Pain Level 6 01/23/21 15:08
== END 2021-01-23 17:05 | disposition home or self-care (01) | DRG 806 ==
PROVIDERS: Admitting Provider Advanced Practice Midwife; Visit Provider Advanced Practice Midwife
DX: O24.419 Gestational diabetes mellitus in pregnancy, unspecified control (principal); O36.0930 Maternal care for other rhesus isoimmunization, third trimester, not applicable or unspecified; Z37.0 Single live birth; O99.324 Drug use complicating childbirth; O99.334 Smoking (tobacco) complicating childbirth; F17.210 Nicotine dependence, cigarettes, uncomplicated; O99.344 Other mental disorders complicating childbirth; F31.9 Bipolar disorder, unspecified; Z3A.37 37 weeks gestation of pregnancy; O63.0 Prolonged first stage (of labor); O42.92 Full-term premature rupture of membranes, unspecified as to length of time between rupture and onset of labor; Z20.822 Contact with and (suspected) exposure to COVID-19; G56.03 Carpal tunnel syndrome, bilateral upper limbs; O99.824 Streptococcus B carrier state complicating childbirth; F11.21 Opioid dependence, in remission
CPT/HCPCS: 36415; 84112; 85027; 85461; 86850; 86900; 86901; 87635; 90384; J2540; J2790; J3490

== ENCOUNTER 2021-11-24 01:39 | Outpatient (CLI) | payer MEDICAID, SELFPAY ==
[2021-11-24 14:44] LABS: Kit/Specimen SENT
[2021-11-24 14:49] LABS: Abs Immature Grans 0.03 10^3/uL (0.0-0.06); Absolute Basophil Count 0.04 10^3/uL (0.0-0.2); Absolute Eosinophil Count 0.15 10^3/uL (0.0-0.7); Absolute Lymphocyte Count 2.24 10^3/uL (1.2-3.4); Absolute Monocyte Count 0.53 10^3/uL (0.1-0.8); Absolute Neutrophil Count 5.05 10^3/uL (1.2-6.7); Basophils % 0.5; Eosinophils % 1.9; HCT 39.8 % (36.0-46.0); HGB 13.1 g/dL (11.2-15.7); Immature Grans % 0.4; Lymphocytes % 27.9; MCH 29.9 pg (27.0-33.0); MCHC 32.9 % (32.0-36.0); MCV 91 fL (80-95); MPV 10.6 fL (8.0-11.0); Monocytes % 6.6; Neutrophils % 62.7; Platelet Count 209 10^3/uL (130-400); RBC 4.38 10^6/uL (3.93-5.22); RDW 13.4 % (11.7-14.6); RDW-SD 45.1 fL; WBC 8.04 10^3/uL (4.4-10.8)
[2021-11-24 14:54] LABS: Glucose,1 Hr (Glucola) 131 mg/dL (80-140)
[2021-11-24 15:18] LABS: Hemoglobin A1C 5.3 % (<5.7)
[2021-11-24 18:53] LABS: *AMPHETAMINES SCREEN URINE Negative (Negative); *BARBITURATES SCREEN URINE Negative (Negative); *BENZODIAZEPINES SCREEN URINE Negative (Negative); Cannabinoids THC Positive (Negative); Cocaine Screen,Urine Negative (Negative); METHADONE URINE SCREEN Negative (Negative); OPIATES URINE SCREEN Negative (Negative)
[2021-11-24 19:00] LABS: Tricyclic Antidepressants Negative (Negative)
[2021-11-25 10:14] LABS: Varicella IgG Antibody Positive (See Note)
[2021-11-25 10:18] LABS: Rubella IgG Ab (UVM) Positive (See Note)
[2021-11-25 10:42] LABS: Hepatitis B Surface Ag Negative (Negative); Hepatitis C Ab w Rflx HCV PCR Negative (Negative)
[2021-11-25 11:17] LABS: HIV-1/2 Ag & Ab Screen Negative (Negative)
[2021-11-25 14:39] LABS: Chlamydia Result Negative (Negative); GC Result Negative (Negative)
[2021-11-26 14:27] LABS: Syphilis IgG w/Reflex Nonreactive (Nonreactive)
[2021-11-27 13:05] LABS: Buprenorphine Negative ng/mL (Cutoff: 5.0); Norbuprenorphine Negative ng/mL (Cutoff: 2.5)
== END 2021-11-24 01:40 | disposition home or self-care (01) ==
LOC: LBO 01:39
PROVIDERS: Advanced Practice Midwife; PCP Nurse Practitioner; Visit Provider Advanced Practice Midwife
DX: O99.341 Other mental disorders complicating pregnancy, first trimester (principal); F31.9 Bipolar disorder, unspecified; O99.321 Drug use complicating pregnancy, first trimester; Z86.32 Personal history of gestational diabetes; Z3A.11 11 weeks gestation of pregnancy
CPT/HCPCS: 36415; 80307; 82950; 86787; 86803; 86850; 86900; 86901; 87340; 87389; 87491; 87591; 83036; 85025; 86762; 86780; 87086

== ENCOUNTER → 2022-01-26 02:06 | Outpatient (CLI) | payer MEDICAID, SELFPAY ==
--- NOTE | 2022-01-26 06:45 | DI.US_ITS ---
Exam(s) US OB 2-3 TRIMESTER EXAM: US OB 2-3 TRIMESTER CLINICAL HISTORY: , survey. TECHNIQUE: Transabdominal obstetrical ultrasound was performed. COMPARISON: US US OB JIN WEIGHT from 01/11/2021 FINDINGS: There is a single viable intrauterine gestation with cardiac activity identified-143 bpm. Amniotic fluid: There is a normal amount of amniotic fluid. Placental location: The placenta is anterior grade 0,with no evidence of placenta previa.This is from the tip of placenta to the internal cervical os is 4.5 cm on today's study. ANATOMY: A 3 vessel umbilical cord is seen. A four-chamber cardiac view was obtained. Right and left ventricular outflow tracts were imaged. There are no obvious abnormalities of the spinal column evident. There is no obvious abnormal ity of the anterior abdominal wall. stomach and urinary bladder are identified and there is no evidence of hydronephrosis. No abnormalities of the upper lip region are identified. No evidence of choroid plexus cysts i n the brain. Dating parameters place this at approximately 20 weeks and 4 days gestational age. BPD measures 20 weeks and 3 days HC measures 20 weeks and 6 days AC measures 20 weeks and 6 days FL measures 20 weeks and 1 day Estimated weight is 359 gm-0 pounds 13 ounces. Fetus is at the 42nd percentile on the Hadlock scale. IMPRESSION:: Single viable intrauterine gestation which is approximately 20 weeks and 4 days gestati onal age, implying an HAM of June 11, 2022. There are no obvious anomalies evident on today's study. The placenta is anterior with no evidence of placenta previa. There is a normal amount of amniotic fluid. DATA REPOSITORY:
== END ==
PROVIDERS: PCP Nurse Practitioner; Visit Provider Advanced Practice Midwife
DX: Z34.92 Encounter for supervision of normal pregnancy, unspecified, second trimester (principal); Z3A.20 20 weeks gestation of pregnancy
CPT/HCPCS: 76805

== ENCOUNTER 2022-03-23 04:04 | Outpatient (CLI) | payer MEDICAID, SELFPAY ==
[2022-03-23 10:15] LABS: HCT 34.2 % (36.0-46.0); HGB 11.5 g/dL (11.2-15.7); MCH 30.3 pg (27.0-33.0); MCHC 33.6 % (32.0-36.0); MCV 90 fL (80-95); MPV 10.8 fL (8.0-11.0); Platelet Count 223 10^3/uL (130-400); RBC 3.79 10^6/uL (3.93-5.22); RDW 13.4 % (11.7-14.6); RDW-SD 44.3 fL; WBC 7.98 10^3/uL (4.4-10.8)
[2022-03-23 10:24] LABS: Glucose,1 Hr (Glucola) 157 mg/dL (80-140)
[2022-03-23 16:56] LABS: *AMPHETAMINES SCREEN URINE Negative (Negative); *BARBITURATES SCREEN URINE Negative (Negative); *BENZODIAZEPINES SCREEN URINE Negative (Negative); Cannabinoids THC Positive (Negative); Cocaine Screen,Urine Negative (Negative); METHADONE URINE SCREEN Negative (Negative); OPIATES URINE SCREEN Negative (Negative)
[2022-03-23 16:58] LABS: Tricyclic Antidepressants Negative (Negative)
[2022-03-30 15:36] LABS: Buprenorphine Negative ng/mL (Cutoff: 5.0); Norbuprenorphine Negative ng/mL (Cutoff: 2.5)
[2022-03-31 12:44] LABS: Fentanyl Interpretation Negative.; Fentanyl by LC-MS/MS Negative; Norfentanyl by LC-MS/MS Negative
== END 2022-03-23 04:05 | disposition home or self-care (01) ==
LOC: LBO 04:04
PROVIDERS: Advanced Practice Midwife; PCP Nurse Practitioner; Visit Provider Advanced Practice Midwife
DX: Z34.93 Encounter for supervision of normal pregnancy, unspecified, third trimester (principal); F12.90 Cannabis use, unspecified, uncomplicated; Z87.898 Personal history of other specified conditions
CPT/HCPCS: 36415; 80307; 82950; 85027; 86850; 86900; 86901; 90384; 80354

== ENCOUNTER 2022-05-09 08:33 | Outpatient (CLI) | payer MEDICAID, SELFPAY ==
[2022-05-09 09:56] VITALS: BP 110/59; PULSE 96; TEMP 37
[2022-05-09 10:22] VITALS: BP 110/59; PULSE 96
--- NOTE | 2022-05-09 11:27 | PDOC.NST_ITS ---
Date of service: 05/09/22 Time of Service: 11:27 NST Evaluation Reason for NST Reasons for Nonstress Test: OTHER, SEE COMMENT Reason for NST Other: S/P fall Gestational Age Gestational Age in Weeks and Days: 35 Weeks and 2Days Test and Monitor Explained Test/Monitor Explained: Test Explained, Monitor Explained and Patient Verbalized Understanding Vital Signs Blood Pressure: 110/59 Pulse: 96 Temperature: 98.6 F NST Information Date on Monitor: 05/09/22 Time on Monitor: 09:55 Date off Monitor: 05/09/22 NST Interventions: None NST Evaluation Patient States Movement: Present FHR Baseline: 150 Variability: Moderate 6-25 bpm Accelerations: 15x15 Decelerations: None NST Results: Reactive Note NST Note Note: Liseth fell down some carpeted stairs today at 0800, sliding on her buttocks and back. She reports some soreness in her right hip and has a contusion on her righ t elbow where she attempted to stop sliding. She denies abdominal discomfort. Monitoring x 1 hour today. Reactive NST. Rest recommended x 24 hours. Instructed to call if she experiences cramping or bleeding. NST Reviewed and Verified by: Jeny Son
[2022-05-09 11:29] VITALS: BP 110/59; PULSE 96; TEMP 37
--- NOTE | 2022-05-16 11:55 | W.DIABETESNO ---
Date of service: 05/16/22 Time of Service: 11:55 Diabetes Note Reason for Visit: GDM NOTE: Left message to call back. Time Spent in Nutritional Counseling and Treatment: 0
--- NOTE | 2022-05-17 09:42 | W.NUTRFU ---
Date of service: 05/17/22 Time of Service: 09:42 Nutrition Note NOTE: Liseth returned my call and stated that she does not need any additional nutritional counseling. Will be available prn. Time Spent in Nutritional Counseling and Treatment: 5
== END 2022-05-09 11:00 | disposition home or self-care (01) ==
LOC: BCD 08:36 → OBS 09:53
PROVIDERS: PCP Nurse Practitioner; Visit Provider Advanced Practice Midwife
DX: O26.893 Other specified pregnancy related conditions, third trimester (principal); M25.551 Pain in right hip; S50.01XA Contusion of right elbow, initial encounter; Z91.81 History of falling; Z3A.35 35 weeks gestation of pregnancy
CPT/HCPCS: 59025

== ENCOUNTER → 2022-05-18 02:42 | Outpatient (CLI) | payer MEDICAID, SELFPAY ==
--- NOTE | 2022-05-18 07:45 | DI.US_ITS ---
Exam(s) US OB JIN WEIGHT EXAM: US OB JIN WEIGHT CLINICAL HISTORY: JIN and growth 36-37 weeks,GEST DIABETES,[id number]. COMPARISON: US US OB 2-3 TRIMESTER from 01/26/2022 TECHNIQUE: Transabdominal obstetrical ultrasound performed. FINDINGS: Sonographic images demonstrate a single intrauterine gestation in cephalic position. heart rate motion is Dopplered at: 156 bpm. Amniotic fluid index: 10.4 cm. Largest pocket of fluid measures 4.7 cm. Amount of fluid is within no rmal limits. Biometric measurements correspond to 38 weeks 2 days and EDC of June 07. This is above the ex pected range. The estimated weight is 3295 grams, at the 83rd percentile IMPRESSION: Fetus measuring large for dates at 38+ 2 weeks. DATA REPOSITORY:
== END ==
PROVIDERS: PCP Nurse Practitioner; Visit Provider Advanced Practice Midwife
DX: O24.410 Gestational diabetes mellitus in pregnancy, diet controlled (principal); O26.843 Uterine size-date discrepancy, third trimester
CPT/HCPCS: 76816

== ENCOUNTER 2022-05-18 17:50 | Outpatient (REF) | payer MEDICAID, SELFPAY | END 2022-05-18 17:51 | disposition home or self-care (01) | LOC: LBN 17:50 | PROVIDERS: PCP Nurse Practitioner; Visit Provider Advanced Practice Midwife | DX: Z34.93 Encounter for supervision of normal pregnancy, unspecified, third trimester (principal) | CPT/HCPCS: 87081 ==

== ENCOUNTER 2022-06-01 18:26 | Outpatient (REF) | payer MEDICAID, SELFPAY ==
[2022-06-01 13:11] LABS: ROM Plus Negative
== END 2022-06-01 18:27 | disposition home or self-care (01) ==
LOC: LBN 18:26
PROVIDERS: PCP Nurse Practitioner Family; Visit Provider Advanced Practice Midwife
DX: O26.893 Other specified pregnancy related conditions, third trimester (principal); N89.8 Other specified noninflammatory disorders of vagina; Z3A.38 38 weeks gestation of pregnancy
CPT/HCPCS: 84112

== ENCOUNTER 2022-06-12 01:13 | Inpatient (IN) | payer MEDICAID, SELFPAY ==
[2022-06-12] VITALS (11 sets, daily range): BP systolic 116–140; BP diastolic 56–74; PULSE 70–100; RESP 16–18; TEMP 36.7–37; O2SAT 95–99
[2022-06-12 01:32] LABS: Source Nasal/Nares
[2022-06-12 01:34] LABS: HCT 36.2 % (36.0-46.0); HGB 11.7 g/dL (11.2-15.7); MCH 27.9 pg (27.0-33.0); MCHC 32.3 % (32.0-36.0); MCV 86 fL (80-95); MPV 11.8 fL (8.0-11.0); Platelet Count 221 10^3/uL (130-400); RDW 14.5 % (11.7-14.6); RDW-SD 45.4 fL; WBC 13.48 10^3/uL (4.4-10.8)
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
[2022-06-12] MEDS: Oxytocin 10 UNITS/ML VIAL IM (01:48)
[2022-06-12] MEDS: Lidocaine 1% Multi-Dose 20 ML VIAL 10 ML IJ (02:00)
[2022-06-12 02:04] LABS: COVID-19 PCR Negative (Negative)
[2022-06-12] MEDS: Ibuprofen 600 MG TAB PO ×4 (02:22→21:59)
[2022-06-12] MEDS: Acetaminophen 325 MG TAB 650 MG PO ×3 (09:11→20:27)
--- NOTE | 2022-06-12 10:38 | OBVDS_ITS ---
Date of service: 06/12/22 Time of Service: 03:30 OB Labor/ Delivery Information Baby A Delivery Delivery Method: Spontaneaous Presentation: Vertex Amniotic Fluid: Meconium Estimated Blood Loss: 300 Delivery Outcome: Liveborn Transferred: Remains with Mother Providers Nurse Pallet Stone Inserter: Jeny Son Nurse: Fiona Decker Nurse: Gladis Cleary Other: Mabel Welch Labor/Delivery Information Number of Babies in Womb: 1 Steroids Given: None Reason Steroids Not Administered: N/A Group Beta Strep: Negative Rubella Status: Immune Blood Type: O- Varicella Immunity: Immune Medication in Delivery: Nitrous Maternal Complications: Precipitous Labor(<3hrs) Shoulder Dystocia: No Note: Liseth requested to use the tub for comfort. She ambulated to room 300. Nitrous oxide was provided for comfort with excellent effect. FHTs 140s during first stage of labor. FHTs 140-150 in second stage. Progressed to full dilation and began bearing down in the tub. Second stage huddle was done. Spontaneous delivery of female infant delivered in YAMINI position. Baby was placed on mother's arms was vigorous. Spontaneous cry. Cord was clamped and cut by the baby's grandmother. Pitocin 10 units IM was adminstered after delivery. There was a gush of blood in the tub and Liseth was moved to the bed. The placenta delivered spontaneously and appears to by intact with a three vessel cord. The perineum was inspected and a small perineal laceration was repaired with 2 interrupted 3-0 vicryl sutures under local anesthetic . The baby did kenroy stfeed. After delivery, Mother and baby were stable and bonding well in the delivery room and there were no complications. Stages of Labor Onset of Labor Date: 06/11/22 Onset of Labor Time: 23:45 Complete Dilatation Date: 06/12/22 Complete Dilatation Time: 01:43 Labor - Stage 1 Duration: 1 hours and 58 minutes ROM Baby A: 06/12/22 ROM Baby A: 01:43 ROM Total Time- Baby A: [id number] Delivery Date-Baby A: 06/12/22 Infant Delivery Time-Baby A: 01:44 Labor Stage 2 Duration: 1 minutes Placenta Delivery Date-Baby A: 06/12/22 Placenta Delivery Time-Baby A: 01:57 Labor-Stage 3 Duration: 13 minutes Total Length of Labor-Baby A: 1 hours and 59 minutes Placenta Cultured: No Placenta Status: Delivered Baby A Infant Gender: Female Gestational Status: Term (39-41.6 wks) Gestational Age in Weeks/Days: 40 Weeks and 1 Days weight: 8 lb 0.221 oz Length-Baby A: 21.5 in Head Circumference-Baby A: 14 in Score-1 Minute Interval(Baby A) Heart Rate-1 minute: 100 BPM or Greater Respiratory Effort- 1 minute: Spontaneous/Strong Cry Muscle Tone-1 minute: Active Movement Reflex Response-1 minute: Prompt Response Color-1 minute: Bluish Hands or Feet Total Score-1 minute: 9 Score-5 Minute Interval(Baby A) Heart Rate- 5 minute: 100 BPM or Greater Respiratory Effort-5 minute: Spontaneous/Strong Cry Muscle Tone-5 minute: Active Movement Reflex Response-5 minute: Prompt Response Color-5 minute: Bluish Hands or Feet Total Score- 5 minute: 9 Interventions Repair of Laceration Type: Perineal, Laceration Extension: First Degree. Sponge Count Correct: No Sponges Placed in Vagina, Sharp Count Correct: Yes.
[2022-06-12] MEDS: Nicotine 2 MG GUM CH (14:02)
[2022-06-12] MEDS: Nicotine 7 MG/24 HR PATCH TD (16:13)
[2022-06-12] MEDS: Calcium Carbonate *TUMS* 500 MG CHEW (21:11)
[2022-06-13 07:08] LABS: HCT 31.4 % (36.0-46.0); MCH 27.9 pg (27.0-33.0); MCHC 31.8 % (32.0-36.0); MCV 88 fL (80-95); MPV 11.5 fL (8.0-11.0); Platelet Count 196 10^3/uL (130-400); RBC 3.59 10^6/uL (3.93-5.22); RDW 14.6 % (11.7-14.6); RDW-SD 46.8 fL; WBC 9.17 10^3/uL (4.4-10.8)
[2022-06-13] MEDS: Acetaminophen 325 MG TAB 650 MG PO (08:44)
[2022-06-13] MEDS: Dibucaine 1% 28 GM TUBE TP (08:44)
[2022-06-13] MEDS: Ibuprofen 600 MG TAB PO (08:45)
[2022-06-13] MEDS: Hamamelis Leaf/Glycerin 100 EACH BOX PR (08:45)
--- NOTE | 2022-06-13 12:51 | W.PM.OBPNV1 ---
Date of service: 06/13/22 Time of Service: 12:51 Assessment and Plan Assessment and plan (1) Term of female : Status: Acute Assessment and plan: Caring for baby independently. Pain is managed well with oral analgesics. Voiding without difficulty. well. Sore nipples with blisters on both nipples A - stable mother and baby , Post day 1, nipple pain, history of depression and post depression P - Discharge to home today . Routine post instructions. Discussion of symptoms of post depression. Liseth has taken medications for depression in the past and knows to call with symptoms. She has good support from her family. [facility]. (2) disorder, condition: Status: Acute Assessment and plan: all purpose nipple ointment prescribed at [facility] for blisters on nipples. Subjective Subjective Interval history: Liseth feels well. Patient's Mood: Liseth is using a nicotine patch. She is feeling restless and eager to leave the hospital. She smokes marijuana for coping and she is experiencing symptoms from not smoking for a few days. Her mother is with her for support. [place] baby status: Nursing well (cracked and sore nipples. ) feeding status: Exclusively breast feeding Exam Physical Exam Vital signs: Temp Pulse Resp BP Pulse Ox 98.1 F 70 18 122/74 97 06/12/22 16:21 06/12/22 21:00 06/12/22 21:00 06/12/22 21:00 06/12/22 16:21 Vital Signs Reviewed: Yes Notable Details: H and H 10.0/31.4 Neck Exam Neck Exam: Normal Respiratory Exam Respiratory Exam: Normal Cardiovascular Exam Cardiovascular Exam: Normal Abdominal Exam Abdomen: Tender Fundal Exam Fundus: Below Umbilicus Exam Perineum: Repair Intact External: Absent tenderness Extremities Exam Extremity Exam: Normal Skin Exam Skin Exam: Normal Psychiatric Exam Psychiatric Exam: Abnormal (Her sleep has been interrupted this morning by the lab and this has made her anxious to return home. ) Results Hemoglobin/Hematocrit: Hgb 10.0 g/dL (11.2-15.7) L 06/13/22 06:50 Hct 31.4 % (36.0-46.0) L 06/13/22 06:50 Abnormal Lab Findings: Abnormal Labs 06/12/22 06/13/22 01:25 06:50 WBC 13.48 H RBC 3.59 L Hgb 10.0 L Hct 31.4 L MCHC 31.8 L MPV 11.8 H 11.5 H
== END 2022-06-13 10:00 | disposition home or self-care (01) | DRG 806 ==
PROVIDERS: Admitting Provider Advanced Practice Midwife; PCP Nurse Practitioner Family; Visit Provider Advanced Practice Midwife
DX: O36.0930 Maternal care for other rhesus isoimmunization, third trimester, not applicable or unspecified (principal); O99.324 Drug use complicating childbirth; Z37.0 Single live birth; Z3A.40 40 weeks gestation of pregnancy; O99.334 Smoking (tobacco) complicating childbirth; F17.210 Nicotine dependence, cigarettes, uncomplicated; F17.290 Nicotine dependence, other tobacco product, uncomplicated; O24.420 Gestational diabetes mellitus in childbirth, diet controlled; F12.90 Cannabis use, unspecified, uncomplicated; O99.344 Other mental disorders complicating childbirth; F99 Mental disorder, not otherwise specified; O77.0 Labor and delivery complicated by meconium in amniotic fluid; O70.0 First degree perineal laceration during delivery; F31.9 Bipolar disorder, unspecified; F11.21 Opioid dependence, in remission; O75.89 Other specified complications of labor and delivery; M54.6 Pain in thoracic spine; E55.9 Vitamin D deficiency, unspecified; F90.9 Attention-deficit hyperactivity disorder, unspecified type
CPT/HCPCS: 36415; 85027; 86850; 86900; 86901; 87635; 86870; J2590; J3490

== ENCOUNTER 2022-08-09 03:14 | Outpatient (CLI) | payer MEDICAID, SELFPAY ==
[2022-08-09 14:35] LABS: Abs Immature Grans 0.02 10^3/uL (0.0-0.06); Absolute Basophil Count 0.04 10^3/uL (0.0-0.2); Absolute Eosinophil Count 0.12 10^3/uL (0.0-0.7); Absolute Lymphocyte Count 2.36 10^3/uL (1.2-3.4); Absolute Monocyte Count 0.39 10^3/uL (0.1-0.8); Absolute Neutrophil Count 4.93 10^3/uL (1.2-6.7); Basophils % 0.5; Eosinophils % 1.5; HCT 40.7 % (36.0-46.0); HGB 12.9 g/dL (11.2-15.7); Immature Grans % 0.3; MCH 27.1 pg (27.0-33.0); MCHC 31.7 % (32.0-36.0); MCV 86 fL (80-95); Neutrophils % 62.7; Platelet Count 259 10^3/uL (130-400); RBC 4.76 10^6/uL (3.93-5.22); RDW 14.9 % (11.7-14.6); RDW-SD 46.6 fL; WBC 7.86 10^3/uL (4.4-10.8)
== END 2022-08-09 03:15 | disposition home or self-care (01) ==
LOC: LBO 03:14
PROVIDERS: PCP Nurse Practitioner Family; Visit Provider Obstetrics & Gynecology Gynecology
DX: Z30.2 Encounter for sterilization (principal); Z01.818 Encounter for other preprocedural examination; Z01.812 Encounter for preprocedural laboratory examination
CPT/HCPCS: 36415; 86850; 86900; 86901; 85025

== ENCOUNTER 2022-08-11 07:14 | Day surgery (SDC) | payer MEDICAID, SELFPAY ==
[2022-08-11] VITALS (11 sets, daily range): BP systolic 81–149; BP diastolic 43–112; PULSE 60–89; RESP 14–20; TEMP 36.3–37.2; O2SAT 20–98; BMI 28.1
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
[2022-08-11] MEDS: Lactated Ringers 1,000 ML 125 ML IV ×2 (07:45→10:47)
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
--- NOTE | 2022-08-11 09:50 | FALL_PTH ---
PATIENT: Liseth Washburn LOC: [place] U#:[id number] AGE/SX: 27/F ROOM: RE08/11/[address]: Talita Hester : 1995 BED: DIS: 08/11/2022 SPEC #: [id number] RECD: 08/11/22 11:11 STATUS: [facility]ADI [facility] #: [id number] YANNI: 08/11/22 09:[address]: Talita Hester DEPT: Surgical Specimen RECD BY: July Chacko ENTERED: 08/11/22 11:12 SP TYPE: Fall OTHR DR: Marleny Rice, PERCUSSION INSTRUCTOR Tissues: 1 - FALLOPIAN TUBE (STERILIZATION) 2 - FALLOPIAN TUBE (STERILIZATION) Procedures: GROSS AND MICRO LEVEL 2 Comments: [id number]
[2022-08-11] MEDS: Bupivacaine 0.25% Pres-Free 30 ML VIAL (10:05)
--- NOTE | 2022-08-11 10:20 | PDOC.DSDIS_ITS ---
Date of service: 08/11/22 Time of Service: 10:20 Discharge Plan Disposition Patient Disposition: Home Condition: Good Discharge Details Reason For Visit: laparoscopic bilateral salpingectomy Attending Provider: Talita Hester Primary Care Provider: Marleny Rice Home Meds and New Rx's Prescriptions: No Action betamethasone dipropionate 0.05 % cream 1 applic topical BID PRN (Reason: skin irritation) Qty: 45 0RF PrePlus 27 mg iron- 1 mg tablet 1 tab PO DAILY Qty: 1 5RF Rx Instructions: give with food (meal/snack) nicotine 21-14-7 mg/24 hr patch, TD daily, sequential 1 patch transdermal DAILY Discharge Instructions Additional Instructions: YOu have been given a prescription for Percocet and Ibuprofen for pain. Take the Ibuprofen every 6 hours for mild to moderate pain. Take the Percocet 5/325mg every 6 hours for pain not controlled by the Ibuprofen. Keep your follow up appointment with Dr. Hester. You can remove the bandaids in 48hrs and leave the white tape in place until your postop visit. It's ok if the white tape falls off on it's own. Stand Alone Forms: DSU Post Information Systems Administrator SurgeryW/Incision Activity:: Activity as Tolerated Diet:: As Tolerated Discharge Orders Discharge Orders: Discharge Order (Routine); Ordered 08/11/22 Ordered By: Talita Hester DS: Diagnosis Discharge Diagnosis (1) Request for sterilization: Status: Acute (2) H/O bilateral salpingectomy: Status: Acute
[2022-08-11] MEDS: ACETAMINOPHEN 1,000 MG/100 ML BTL 400 MG IVPB (10:25)
--- NOTE | 2022-08-11 10:33 | W.PM.OP ---
Date of service: 08/11/22 Time of Service: 10:33 Operative Note Operative Note DATE OF PROCEDURE: 08/11/22 PRE-OP DIAGNOSIS: multiparity. desires permanent sterilization. PROCEDURE: laparoscopic bilateral salpingectomy SURGEON: Talita Hester ASSISTING SURGEON: Christina Luciano Refer to Anesthesia Record ESTIMATED BLOOD LOSS: 0 PATHOLOGY: other (bilateral fallopian tubes to pathology) COMPLICATIONS: None Patient was transported to: PACU Patient's condition: stable Indications: 27yo female who desires permanent sterilization. She was counseled regarding alternative methods of contraception, including LARC and has chosen a permanent sterilization Findings: Nl uterus, adnexa and upper abdomen. Procedure Description: Patient was taken to the operating room where she was placed in the dorsal supine position and endotracheal anesthesia was administered without difficulty. SCDs were in place. A surgical timeout was performed. She was prepped and draped in the usual sterile fashion. The umbilical fold was infiltrated with 0.25% Marcaine without epinephrine and 12 mm vertical skin incision was made in the umbilicus. Through this incision a varies needle connected to carbon dioxide gas was inserted into the abdomen and intra-abdominal placement confirmed by drop in the intra-abdominal pressure. Once a pneumoperitoneum was established a 12 mm Visiport trocar was introduced into the abdomen under direct visualization. The patient was then placed in Trendelenburg and 2 sites on the abdomen approximately 6 cm diagonal to the right of and left of the umbilical incision were transilluminated the skin infiltrated with 0.25% Marcaine, incised with a scalpel and under direct visualization two 5 mm ports were placed in the right and left lower quadrants respectively. The abdomen was inspected with the above-noted findings. The left fallopian tube located and followed out to its fimbriated end and a LigaSure electrocautery device was used to clamp cauterize and transect the fimbria from the left mesosalpinx to the level of the left uterine cornua. The left fallopian tube was then delivered through the 10 mm umbilical port and passed off of the operative field. A similar technique was carried out on the right fallopian tube without difficulty. The right fallopian tube was then delivered through the umbilical port. Both fallopian tube pedicles were inspected and noted to be hemostatic. Under direct visualization the two 5 mm ports were removed, pneumoperitoneum reduced, and the umbilical port removed. The fascia of the umbilical port site was reapproximated with interrupted suture of 0 Vicryl. The skin of all trocar sites was reapproximated with 4-0 Monocryl and covered with dry sterile dressings. The patient was awakened extubated and transported to recovery area in stable condition. All sponge lap needle counts are correct x2.
[2022-08-11] MEDS: ePHEDrine 25 MG/5 ML Syringe IVP (10:50)
[2022-08-11] MEDS: oxyCODONE 5 MG TAB PO (11:50)
--- NOTE | 2022-08-11 13:18 | W.ANESPOSTOP ---
Postoperative Evaluation Date, Time and Location Date Performed: 08/11/22 Time Performed: 12:20 Patient Location: Day Surgery Unit Vital Signs Most Recent Imported Vital Signs: Most Recent Vital Signs Temp Pulse Resp BP Pulse Ox 36.3 C L 61 20 99/52 L 98 08/11/22 12:28 08/11/22 12:28 08/11/22 12:28 08/11/22 12:28 08/11/22 12:28 Pain Score Most Recent Pain Score: Most Recent Pain Score Pain Level 4 08/11/22 12:28 Assessment Mental Status: Awake (Alert & Oriented to Patient Baseline) Airway and Respiratory Function: Patent airway with normal (patient baseline) respiratory exam Cardiovascular Function: Hemodynamically Stable Hydration Status: Adequately Hydrated Nausea & Vomiting: No Nausea or Vomiting Pain: Pain is tolerable per patient Peripheral Nerve Block: Patient did not receive a nerve block
== END 2022-08-11 12:55 | disposition home or self-care (01) ==
PROVIDERS: PCP Nurse Practitioner Family; Visit Provider Obstetrics & Gynecology Gynecology
PROC: (CPT 58661; principal; 2022-08-11 08:45)
DX: Z30.2 Encounter for sterilization (principal); F12.90 Cannabis use, unspecified, uncomplicated; E55.9 Vitamin D deficiency, unspecified
CPT/HCPCS: 58661; 88302; J0131; J1100; J2250; J2405; J2704

== ENCOUNTER 2023-07-06 03:28 | Outpatient (CLI) | payer MEDICAID, SELFPAY ==
[2023-07-06 16:00] LABS: Abs Immature Grans 0.04 10^3/uL (0.0-0.06); Absolute Basophil Count 0.04 10^3/uL (0.0-0.2); Absolute Eosinophil Count 0.11 10^3/uL (0.0-0.7); Absolute Lymphocyte Count 2.48 10^3/uL (1.2-3.4); Absolute Monocyte Count 0.53 10^3/uL (0.1-0.8); Absolute Neutrophil Count 5.37 10^3/uL (1.2-6.7); Basophils % 0.5; Eosinophils % 1.3; HCT 42.6 % (36.0-46.0); HGB 14.3 g/dL (11.2-15.7); Immature Grans % 0.5; Lymphocytes % 28.9; MCH 30.8 pg (27.0-33.0); MCHC 33.6 % (32.0-36.0); MCV 92 fL (80-95); MPV 10.3 fL (8.0-11.0); Monocytes % 6.2; Neutrophils % 62.6; Platelet Count 242 10^3/uL (130-400); RBC 4.65 10^6/uL (3.93-5.22); RDW 13.3 % (11.7-14.6); RDW-SD 44.1 fL; WBC 8.57 10^3/uL (4.4-10.8)
[2023-07-06 17:02] LABS: ALT 28 U/L (14-59); AST 13 U/L (15-37); Albumin 3.9 g/dL (3.4-5.0); Alkaline Phosphatase 69 U/L (46-116); BUN 15 mg/dL (7-18); Bilirubin, Total 0.9 mg/dL (0.2-1.0); CREATININE 0.9 mg/dL (0.55-1.02); Calcium 9.5 mg/dL (8.5-10.1); Chloride 106 mmol/L (98-107); Glucose 106 mg/dL (74-106); Potassium 4.1 mmol/L (3.5-5.1); Sodium 141 mmol/L (136-145); Total Protein 7.1 g/dL (6.4-8.2)
[2023-07-06 17:20] LABS: Calculated LDL 119 mg/dL (<100); Cholesterol 214 mg/dL (<200); HDL Cholesterol 45 mg/dL (40-60); Triglyceride 251 mg/dL (<150)
== END 2023-07-06 03:29 | disposition home or self-care (01) ==
LOC: LBO 03:28
PROVIDERS: PCP Nurse Practitioner Family; Visit Provider Student in an Organized Health Care Education/Training Program
DX: L25.9 Unspecified contact dermatitis, unspecified cause (principal)
CPT/HCPCS: 36415; 80053; 80061; 85025

== ENCOUNTER 2025-01-07 19:41 | Emergency (ER) | payer MEDICAID, SELFPAY ==
[2025-01-07] VITALS (12 sets, daily range): BP systolic 96–140; BP diastolic 58–86; PULSE 63–91; RESP 14–26; TEMP 36.6; O2SAT 95–99
--- NOTE | 2025-01-07 19:30 | RT.EKG_ITS ---
APPROVED REPORT Exam: Resting ECG Reason for Exam: chest pain Patient Location: E HR:67 bpm ECG Measurements Heart Rate 67 AXIS PA 125 P 6 QRSd 83 QRS -8 QT 384 T 1 QTc 406 Conclusion Sinus rhythm. 67 normal axis no stemi
--- NOTE | 2025-01-07 20:00 | DI.RAD_ITS ---
Exam(s) XR CHEST 2V PA LATERAL EXAM: XR CHEST 2V PA LATERAL CLINICAL HISTORY: Chest pain TECHNIQUE: 2D digital imaging was performed. Two views. COMPARISON: CR ABD FLAT UPRIGHT PA CHEST from 09/02/2015 FINDINGS: HEART: Normal size. Aorta: Not dilated. PULMONARY VASCULATURE: Normal. MEDIASTINUM: Unremarkable. LUNGS: Clear. PLEURAL SPACE: No pleural effusion or pneumothorax. BONE:Unremarkable for age. SOFT TISSUES: Unremarkable. IMPRESSION: No acute abnormality. The preliminary [facility] report was reviewed. DATA REPOSITORY: RADIATION DOSE DELIVERED:
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
[2025-01-07] MEDS: Famotidine 20 MG/2 ML VIAL 40 MG IVP (20:17)
[2025-01-07] MEDS: MYLANTA 30 ML, LIDOCAINE 2% VISCOUS UD 15 ML PO (20:17)
[2025-01-07 20:20] LABS: Abs Immature Grans 0.02 10^3/uL (0.0-0.06); Absolute Basophil Count 0.07 10^3/uL (0.0-0.2); Absolute Lymphocyte Count 3.15 10^3/uL (1.2-3.4); Absolute Monocyte Count 0.62 10^3/uL (0.1-0.8); Absolute Neutrophil Count 4.87 10^3/uL (1.2-6.7); Basophils % 0.8 %; Eosinophils % 2.2 %; HCT 42.1 % (36.0-46.0); HGB 14.3 g/dL (11.2-15.7); Immature Grans % 0.2 %; Lymphocytes % 35.3 %; MCH 30.4 pg (27.0-33.0); MCV 89 fL (80-95); MPV 10.9 fL (8.0-11.0); Monocytes % 6.9 %; Neutrophils % 54.6 %; Platelet Count 238 10^3/uL (130-400); RBC 4.71 10^6/uL (3.93-5.22); RDW 12.8 % (11.7-14.6); WBC 8.93 10^3/uL (4.4-10.8)
[2025-01-07 20:39] LABS: ALT 34 U/L (14-59); AST 16 U/L (15-37); Albumin 4.4 g/dL (3.4-5.0); Alkaline Phosphatase 75 U/L (46-116); Anion Gap 11.8 mmol/L (3-11); BUN 14 mg/dL (7-18); Bilirubin, Total 0.6 mg/dL (0.2-1.0); CO2 25.2 mmol/L (21.0-32.0); CREATININE 0.8 mg/dL (0.55-1.02); Chloride 104 mmol/L (98-107); Estimated GFR 100.96 (mL/min/1.73m2); Glucose 108 mg/dL (74-106); Lipase 71 U/L (<78); Magnesium 2.2 mg/dL (1.8-2.4); Potassium 3.6 mmol/L (3.5-5.1); Sodium 141 mmol/L (136-145); Total Protein 7.8 g/dL (6.4-8.2)
[2025-01-07 20:40] LABS: Troponin I < 4 ng/L (<or=51)
--- NOTE | 2025-01-07 20:57 | DI.VRAD_ITS ---
PROCEDURE INFORMATION: Exam: XR Chest Exam date and time: 01/07/2025 8:31 PM Age: 29 years old Clinical indication: Sternal or substernal pain; Sub sternal chest pain radiating to arm TECHNIQUE: Imaging protocol: Radiologic exam of the chest. Views: 2 views. COMPARISON: No relevant prior studies available. FINDINGS: Lungs: There is no evidence of focal pulmonary consolidation. The pulmonary vasculature is normal. Pleural spaces: There is no evidence of pneumothorax. There are no pleural effusions present. Heart/Mediastinum: The cardiac silhouette is within normal limits. The mediastinum is normal. Bones/joints: The spine, sternum, ribs, and pectoral girdles show no evidence of acute abnormality Soft tissues: There are no soft tissue masses or calcifications. IMPRESSION: No active cardiopulmonary disease. Dictated and Authenticated by: Eyad Akins MD. Orderin Andrea Douglas MD
[2025-01-07] MEDS: Ketorolac 15 MG/ML VIAL IVP (21:07)
== END 2025-01-07 21:14 | disposition home or self-care (01) ==
PROVIDERS: Emergency Provider Nurse Practitioner Family; PCP Nurse Practitioner Family
DX: R07.9 Chest pain, unspecified (principal); R11.0 Nausea; R42 Dizziness and giddiness; F17.290 Nicotine dependence, other tobacco product, uncomplicated; F17.210 Nicotine dependence, cigarettes, uncomplicated
CPT/HCPCS: 36415; 80053; 83690; 93005; 96374; 96375; 99285; 71046; 83735; 84484; 85025; 93010; 99284; J1885

== ENCOUNTER 2025-03-20 14:16 | Outpatient (CLI) | payer MEDICAID, SELFPAY ==
[2025-03-20 12:30] LABS: HCT 42.0 % (36.0-46.0); HGB 14.0 g/dL (11.2-15.7); MCH 30.6 pg (27.0-33.0); MCHC 33.3 % (32.0-36.0); MCV 92 fL (80-95); MPV 10.7 fL (8.0-11.0); Platelet Count 256 10^3/uL (130-400); RBC 4.57 10^6/uL (3.93-5.22); RDW 13.0 % (11.7-14.6); RDW-SD 43.2 fL; WBC 9.08 10^3/uL (4.4-10.8)
[2025-03-20 12:40] LABS: Hemoglobin A1C 5.3 % (<5.7)
[2025-03-20 13:32] LABS: Calculated LDL 149 mg/dL (<100); Cholesterol 216 mg/dL (<200); HDL Cholesterol 46 mg/dL (>or=50); TSH (W/Ref FT4) 0.85 uIU/mL (0.36-3.74); Triglyceride 105 mg/dL (<150); Vitamin D 25 Total 14 ng/mL (30-100)
== END 2025-03-20 14:17 | disposition home or self-care (01) ==
LOC: LBO 14:17
PROVIDERS: PCP Nurse Practitioner Family; Visit Provider Nurse Practitioner Family
DX: E55.9 Vitamin D deficiency, unspecified (principal); Z00.00 Encounter for general adult medical examination without abnormal findings; F90.9 Attention-deficit hyperactivity disorder, unspecified type; F39 Unspecified mood [affective] disorder; R63.8 Other symptoms and signs concerning food and fluid intake; L30.1 Dyshidrosis [pompholyx]; F32.9 Major depressive disorder, single episode, unspecified
CPT/HCPCS: 36415; 80061; 82306; 85027; 83036; 84443

== ENCOUNTER 2025-05-05 02:13 | Outpatient (CLI) | payer MEDICAID, SELFPAY ==
--- NOTE | 2025-05-05 06:00 | ETT_ITS ---
APPROVED REPORT Exam: Exercise Treadmill Patient Location: Out-Patient Room/Bed: Stress Nurse: Makenna Luciano RN Ordering Provider:HOMERO SAUCEDA, Contact Number: [phone] BMI: 33.82 Baseline Rhythm: Sinus Rhythm Indications: Chest pain, Medical History Medical History: Anxiety, ADHD, smoker (tobacco and marijuana) vitamin D deficiency, hx IV drug use, depression Cardiac Medications: Hydroxyzine, clonidine, prednisone, vyvanse Allergies: None Cardiac Risk Factors: Smoker, obesity Previous Cardiac Procedures: None Pretest Chest Pain Characteristics: None Exercise History: Indeterminate Physical Disabilities: none Lung Sounds: Clear to auscultation Heart Sounds: Regular Stress Test Details Test: Exercise stress testing was performed using a Jamshid protocol. Rest Stress HR Resting HR Supine: 62 bpm Max Heart Rate (APMHR): 188 bpm Resting HR Standin bpm Target HR (85% APMHR): 160 bpm Max HR Achieved: 164 bpm % of APMHR: 87 Recovery HR: 88 bpm HR response to stress: Normal HR response to stress BP Resting BP Supine: 98/52 mmHg Resting BP Standin/68 mmHg Max BP: 150/44 mmHg Recovery BP: 102/58 mmHg BP response to stress: Normal blood pressure response to stress. ECG Resting ECG: Sinus Rhythm Stress ECG: Sinus Tachycardia ST Change: No significant ST segment changes noted Recovery ECG: Sinus Rhythm Recovery ST Change: No significant ST segment changes noted Clinical Reason for Termination: Target HR Achieved, significant artifact Stress Symptoms: mild SOB Exercise duration: 09 min07 sec Highest Stage Reached: Stage 4: 4.2 mph at 16% grade. Exercise capacity: 10.35 METs Angina Score: None Franz Treadmill Score: 7.7 Rate Pressure Product: [id number] Stress ECG Conclusion 1. Resting electrocardiogram was normal 2. Patient exercised on the Jamshid protocol and completed workload of 10 METS 3. Normal heart rate and blood pressure response to exercise. The patient achieved 87% of maximal predicted heart rate for age 4. There was no electrocardiographic evidence of myocardial ischemia 5. There were no significant dysrhythmias Franz Treadmill Score is 7.7 which is Low risk. Stress Test Summary STAGE Time (mins) Speed (mph) Grade (%) HR BP SpO2 SYMPTOMS METS Supine 62 98/52 95% Standing 89 94/68 1 3 1.7 10 111 132/62 97% 4.5 2 6 2.5 12 115 7 3 9 3.4 14 156 10 4 12 4.2 16 160 Mild SOB 13 1 min recovery 85 150/44 97% 3 min recovery 85 132/50 98% SOB resolved 6 min recovery 88 102/58 Patient met target HR. Patient c/o mild SOB. Treadmill stopped r/t significant artifact with movement. SOB resolved at test end. Patient left ambulatory in no apparent distress.
== END 2025-05-05 02:33 ==
LOC: DI 02:14
PROVIDERS: PCP Nurse Practitioner Family; Visit Provider Internal Medicine Cardiovascular Disease
DX: R07.9 Chest pain, unspecified (principal)
CPT/HCPCS: 93017

== ENCOUNTER 2025-06-30 20:51 | Outpatient (REF) | payer MEDICAID, SELFPAY ==
[2025-06-30 21:55] LABS: Cannabinoids THC Positive (Negative)
== END 2025-06-30 20:52 | disposition home or self-care (01) ==
LOC: LBN 20:51
PROVIDERS: PCP Nurse Practitioner Family; Visit Provider Nurse Practitioner Family
DX: F90.8 Attention-deficit hyperactivity disorder, other type (principal)
CPT/HCPCS: 80307